=== PATIENT | male | born 1970 | race Caucasian/White ===

== ENCOUNTER 2020-01-04 13:12 | Observation (INO) | payer BC ==
[2020-01-04] MEDS ORDERED: Aspirin 81 MG Tab.Chew PO ONE (13:23)
[2020-01-04] MEDS ORDERED: Nitroglycerin 0.4 MG Tab.SL SL PRN ×2 (13:24→22:44)
--- NOTE | 2020-01-04 13:28 | EDM.PDOC ---
ED HPI GENERAL MEDICAL PROBLEM - General Chief Complaint: Chest Pain Stated Complaint: CHEST PAIN Time Seen by Provider: 01/04/20 13:28 Source of Information: Reports: Patient History Limitations: Reports: No Limitations - History of Present Illness INITIAL COMMENTS - FREE TEXT/NARRATIVE: Owen, 49-year-old male, while at work this morning at roughly 8 AM developed discomfort with left shoulder. This progressed radiating and becoming tightness in his chest with radiation in the left arm, slightly downward. He denies it being crushing and states "it is not like the elephant sitting on your chest that they talk about." States he has chronic shoulder issues with proven rotator cuff injury bilateral, assuming that is what the onset nature of his pain was. As it is persisted and had some mild irritation with shoulder and left arm involvement feels warranted for evaluation. Denies any shortness of breath, no nausea-vomiting, no lightheadedness or dizziness. States he typically gets a physical every year, if remembering correctly would have been February 2019 with everything being within normal limits. No medications advised no treatment is advised. States rotator cuff injuries are offered for repair or to continue current activity until they worsen and force some form of intervention. 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 [No Known Home Meds] 01/04/20 [History] Past Medical History HEENT History: Reports: Impaired Vision Cardiovascular History: Reports: None Respiratory History: Reports: None Gastrointestinal History: Reports: None Genitourinary History: Reports: Other (See Below) (Nocturia) Musculoskeletal History: Reports: Other (See Below) (Bilateral Rotator cuff issues) Neurological History: Reports: None Psychiatric History: Reports: None Endocrine/Metabolic History: Reports: None Hematologic History: Reports: None Immunologic History: Reports: None Oncologic (Cancer) History: Reports: None Dermatologic History: Reports: None - Past Surgical History HEENT Surgical History: Reports: Other (See Below) (tympanoplasty (Right)) Musculoskeletal Surgical History: Reports: Arthroscopic Knee (Left) Oncologic Surgical History: Reports: None - Past Imaging History Past Imaging History: Reports: MRI, Xray Social & Family History - Tobacco Use Tobacco Use Status *Q: Former Tobacco User (6 year cessation) Tobacco Use Within Last Twelve Months: No - Caffeine Use Caffeine Use: Reports: Coffee, Soda - Alcohol Use Alcohol Use History: Yes Total Drinks Per Week Comment: two or three possibly per week, at most. Alcohol Use in Last Twelve Months: Yes Alcohol Use Frequency: Socially - Recreational Drug Use Recreational Drug Use: No Drug Use in Last 12 Months: No - Living Situation & Occupation Living situation: Reports: , with Spouse Occupation: Employed ED ROS GENERAL - Review of Systems Review Of Systems: Comprehensive ROS is negative, except as noted in HPI. Constitutional: Reports: No Symptoms HEENT: Reports: Glasses Respiratory: Reports: No Symptoms Cardiovascular: Reports: Chest Pain Endocrine: Reports: No Symptoms GI/Abdominal: Reports: No Symptoms Musculoskeletal: Reports: Shoulder Pain Skin: Reports: No Symptoms Neurological: Reports: No Symptoms Psychiatric: Reports: No Symptoms Hematologic/Lymphatic: Reports: No Symptoms Immunologic: Reports: No Symptoms ED EXAM, GENERAL - Physical Exam Exam: See Below Free Text/Narrative:: At time of examination Mr. Soriano states his pain resolved completely shortly after he arrived at the emergency department and was in a semifowler position. He has not had recurrence of the pain, remains mildly hypertensive. General Appearance: Alert, WD/WN, No Apparent Distress. No: Anxious Ears: Normal External Exam, Normal Canal, Hearing Grossly Normal Nose: Normal Inspection, Normal Mucosa, No Blood Throat/Mouth: Normal Inspection, Normal Lips, Normal Teeth, Normal Oropharynx, Normal Voice, No Airway Compromise Head: Atraumatic Neck: Normal Inspection, Supple, Non-Tender. No: Carotid Bruit Respiratory/Chest: No Respiratory Distress, Lungs Clear, Normal Breath Sounds, No Accessory Muscle Use, Chest Non-Tender. No: Rhonchi, Wheezing Cardiovascular: Normal Peripheral Pulses, Regular Rate, Rhythm, No Edema, No Gallop, No JVD, No Murmur, No Rub GI/Abdominal: Normal Bowel Sounds, Soft, Non-Tender, No Organomegaly, No Distention, No Mass, Pelvis Stable (Male) Exam: Deferred Rectal (Males) Exam: Deferred Back Exam: Normal Inspection, Full Range of Motion. No: Paraspinal Tenderness, Vertebral Tenderness Extremities: Normal Inspection, Normal Range of Motion, Non-Tender, No Pedal Edema, Normal Capillary Refill, Other (No pain induced to motion or palpation.) Neurological: Alert Psychiatric: Normal Affect, Normal Mood Skin Exam: Warm, Dry, Intact, Normal Color, No Rash Lymphatic: No Adenopathy #1 Interpretation EKG Date: 01/04/20 Time: 13:28 Rhythm: NSR [place]: Normal P-Wave: Present QRS: Normal ST-T: Normal QT: Normal Comparison: NA - No Prior EKG Course - Vital Signs Last Recorded V/S: Last Vital Signs Temp 36.6 C 01/04/20 13:20 Pulse 60 01/04/20 15:25 Resp 16 01/04/20 15:25 BP 156/91 H 01/04/20 15:25 Pulse Ox 97 01/04/20 15:25 - Orders/Labs/Meds Orders: Active Orders 24 hr Category Date Time Status Patient Status [ADT] Routine ADT 01/04/20 15:29 Ordered Cardiac Monitoring [RC] . DIRECTED Care 01/04/20 15:29 Ordered Peripheral IV Care [RC] . DIRECTED Care 01/04/20 15:32 Ordered Sodium Chloride 0.9% [Saline Flush] Med 01/04/20 15:32 Ordered 10 ml FLUSH Q8HR PRN Peripheral IV Insertion Adult [OM.PC] Routine Oth 01/04/20 15:32 Ordered Code Status [Resuscitation Status] Stat Resus Stat 01/04/20 15:34 Ordered EKG 12 Lead [EK] Stat Ther 01/04/20 13:22 Stop Req Medication Orders Sodium Chloride (Saline Flush) 10 ml FLUSH Q8HR PRN PRN Reason: keep vein open Labs: Laboratory Tests 01/04/20 01/04/20 01/04/20 Range/Units 13:33 13:33 15:05 WBC 5.64 (5.00-10.00) 10^3/uL RBC 4.84 (4.50-6.00) 10^6/uL Hgb 13.4 (13.0-17.0) g/dL Hct 40.7 (40.0-52.0) % MCV 84.1 (82.0-92.0) fL MCH 27.7 (27.0-31.0) pg MCHC 32.9 (32.0-36.0) g/dL RDW 12.8 (11.5-14.5) % Plt Count 280 (150-400) 10^3/uL MPV 9.7 (7.4-10.4) fL Immature Gran % (Auto) 0.2 (0.0-5.0) % Neut % (Auto) 71.6 H (50.0-70.0) % Lymph % (Auto) 17.9 L (20.0-40.0) % [place] % (Auto) 8.7 H (2.0-8.0) % Eos % (Auto) 1.1 (1.0-3.0) % Baso % (Auto) 0.5 (0.0-1.0) % Neut # (Auto) 4.04 (2.50-7.00) 10^3/uL Lymph # (Auto) 1.01 (1.00-4.00) 10^3/uL [place] # (Auto) 0.49 (0.10-0.80) 10^3/uL Eos # (Auto) 0.06 L (0.10-0.30) 10^3/uL Baso # (Auto) 0.03 (0.00-0.10) 10^3/uL Immature Gran # (Auto) 0.01 (0.00-0.50) 10^3/uL Sodium 138 (136-145) mmol/L Potassium 3.7 (3.3-5.3) mmol/L Chloride 103 (98-115) mmol/L Carbon Dioxide 24.9 (21.0-32.0) mmol/L Anion Gap 13.8 (5-15) mmol/L BUN 13 (6-25) mg/dL Creatinine 0.91 (0.51-1.17) mg/dL Est Cr Clr Drug Dosing 98.19 mL/min Estimated GFR (MDRD) > 60 mL/min Glucose 89 (75 - 99) mg/dL Calcium 8.9 (8.7-10.3) mg/dL Total Bilirubin 0.5 (0.2-1.0) mg/dL AST 17 (15-37) U/L ALT 28 (12-78) U/L Alkaline Phosphatase 80 (46-116) IU/L Troponin I 0.08 H* (0.00-0.070) ng/mL Total Protein 7.6 (6.4-8.2) g/dL Albumin 3.91 (3.00-4.80) g/dL SARS CoV-2 RNA Rapid CLINT Negative (NEGATIVE) Meds: Medications Generic Name Dose Route Start Last Admin Trade Name Freq PRN Reason Stop Dose Admin Sodium Chloride 10 ml 01/04/20 15:32 Saline Flush FLUSH Q8HR PRN keep vein open Discontinued Medications Generic Name Dose Route Start Last Admin Trade Name Freq PRN Reason Stop Dose Admin Aspirin 324 mg 01/04/20 13:23 01/04/20 13:50 Aspirin PO 01/04/20 13:24 324 mg ONETIME ONE Administration Metoprolol Tartrate 5 mg 01/04/20 15:10 01/04/20 15:14 Lopressor IVPUSH 01/04/20 15:11 5 mg ONETIME ONE Administration Nitroglycerin 0.4 mg 01/04/20 13:24 Nitrostat SL Q5M PRN Chest Pain - Radiology Interpretation Free Text/Narrative:: 2 view chest with radiology report of negative examination. - Re-Assessments/Exams Free Text/Narrative Re-Assessment/Exam: 01/04/20 14:20 His atypical type chest pain has resolved completely shortly after arrival. Nitroglycerin brought blood pressure down some denying any headache. Is resting comfortably awaiting return of laboratory analysis within normal chest x-ray an d EKG G showing questionable ischemia in lead III and V1 with computer interpretation of the digitalis effect. Free Text/Narrative Re-Assessment/Exam: 01/04/20 15:01 Phone call placed Kristi Ansari [facility] provider recommending consult with cardiology/[place]. 1 call placed at [phone] and was connected at [address] Hernandez. Recommendation for continued monitoring, serial troponins, repeat EKG if troponin markers change and in a.m. She feels EKG is within normal limits with a normal variant. Monitor and treatment of hypertension as applicable and consult if development of other symptoms or markers becomes positive. Departure - Departure Time of Disposition: 15:37 Disposition: Refer to Observation Condition: Good Clinical Impression: Atypical chest pain, Elevated troponin I level - Discharge Information *PRESCRIPTION DRUG MONITORING PROGRAM REVIEWED*: Not Applicable *COPY OF PRESCRIPTION DRUG MONITORING REPORT IN PATIENT SHANA: Not Applicable Referrals: Jose Staton MD [Primary Care Provider] - Karla Kessler MD [Physician] - Forms: ED Department Discharge Additional Instructions: Admission to observation status, rule out [place], [facility] provider Kristi Ansari. Sepsis Event Note (ED) - Focused Exam Vital Signs: Vital Signs Temp Pulse Pulse Resp BP BP Pulse Ox 01/04/20 15:25 60 16 156/91 H 97 01/04/20 15:14 75 182/104 H 01/04/20 14:56 89 20 176/94 H 97 01/04/20 14:15 83 17 145/92 H 99 01/04/20 14:00 65 16 147/89 H 96 01/04/20 13:30 74 23 H 162/99 H 97 01/04/20 13:20 36.6 C 71 15 166/93 H 98 ED Communication - ED Communication Date/Time Date: 01/04/20 Time Called: 14:32 - Discussed Case With (1) Discussed Case With (1): Admitting Provider Person/s Notified (1): Kristi Ansari Time Called: 15:04 - Conversation Summary Admitting Provider Agreed to Patient's Admission: Yes Summary Comment: called and discussed cardiology consult. - Problem List & Annotations (1) Atypical chest pain SNOMED Code(s): 104463592 Code(s): R07.89 - OTHER CHEST PAIN Status: Acute Priority: High Current Visit: Yes Onset Date: ~01/04/20 Annotation/Comment:: Observation for serial troponin and EKG. (2) Rotator cuff dysfunction SNOMED Code(s): 670408618 Code(s): M67.919 - UNSP DISORDER OF SYNOVIUM AND TENDON, UNSPECIFIED SHOULDER Status: Chronic Priority: Medium Current Visit: Yes Qualifiers: Laterality: bilateral Qualified Code(s): M67.911 - Unspecified disorder of synovium and tendon, right shoulder; M67.912 - Unspecified disorder of synovium and tendon, left shoulder (3) Elevated troponin I level SNOMED Code(s): 806600030 Code(s): R77.8 - OTHER SPECIFIED ABNORMALITIES OF PLASMA PROTEINS Status: Acute Priority: High Current Visit: Yes Annotation/Comment:: Serial troponins to follow. - Problem List Review Problem List Initiated/Reviewed/Updated: Yes - My Orders Last 24 Hours: My Active Orders 01/04/20 13:22 EKG 12 Lead [EK] Stat 01/04/20 15:29 Patient Status [ADT] Routine Cardiac Monitoring [RC] . DIRECTED 01/04/20 15:32 Peripheral IV Care [RC] . DIRECTED Sodium Chloride 0.9% [Saline Flush] 10 ml FLUSH Q8HR PRN Peripheral IV Insertion Adult [OM.PC] Routine 01/04/20 15:34 Code Status [Resuscitation Status] Stat - Assessment/Plan Last 24 Hours: My Active Orders 01/04/20 13:22 EKG 12 Lead [EK] Stat 01/04/20 15:29 Patient Status [ADT] Routine Cardiac Monitoring [RC] . DIRECTED 01/04/20 15:32 Peripheral IV Care [RC] . DIRECTED Sodium Chloride 0.9% [Saline Flush] 10 ml FLUSH Q8HR PRN Peripheral IV Insertion Adult [OM.PC] Routine 01/04/20 15:34 Code Status [Resuscitation Status] Stat Plan: Admission to observation status, rule out [place], [facility] provider Kristi Ansari.
--- NOTE | 2020-01-04 14:00 | CR ---
[id number] RAD/RAD Chest PA And Lateral EXAM: RAD Chest PA And Lateral INDICATION: CHEST PAIN. COMPARISON: None. DISCUSSION: Cardiomediastinal silhouette is normal in size and contour. Lungs are clear. No pleural effusion or pneumothorax. IMPRESSION: Negative examination of the chest. Mariusz Tyler MD 01/04/20 [id number] Thank you for allowing us to participate in the care of your patient.
[2020-01-04 14:10] LABS: ANION GAP 13.8 mmol/L (5-15); CHLORIDE,CL 103 mmol/L (98-115); SODIUM,NA 138 mmol/L (136-145)
[2020-01-04] MEDS ORDERED: Metoprolol Tartrate 5 MG/5 ML SDV IVPUSH ONE (15:10)
[2020-01-04] MEDS ORDERED: Sodium Chloride 0.9% 10 ML Syringe FLUSH PRN (15:32)
--- NOTE | 2020-01-04 16:24 | PCM.HP.2 ---
H&P History of Present Illness - General Date of Service: 01/04/20 Admit Problem/Dx: Admission Diagnosis/Problem Admission Diagnosis/Problem Cardiac chest pain Source of Information: Patient History Limitations: Reports: No Limitations - History of Present Illness Initial Comments - Free Text/Narative: 49 year old male admitted observation from the [facility] ED due to chest pain, elevated troponin at 0.08. Patient presented to the ED via private car with complaints of left sided chest pain that started approximately 9am on 01/04/2020. He had hit the thenar aspect of his left hand on a truck and experienced pain that was sharp and went up the arm. The pain persisted and th en seemed to come from the left chest as a "discomfort" and go down the left arm. By the time he presented to the ED he states the pain was also in his left upper back. No associated shortness of breath, diaphoresis, nausea, vomiting or headache/light headedness. He has no previous cardiac history, family history includes mother with atrial fibrillation, father cancer. No other cardiac family history. He previously smoked for 25 years, but he quit approximately six years ago. Does have hx of rotator cuff injuries bilaterally. - Related Data Allergies/Adverse Reactions: Allergies Allergy/AdvReac Type Severity Reaction Status Date / Time No Known Drug Allergies Allergy Cannot Verified 01/04/20 13:22 Remember Home Medications: Home Meds . [No Known Home Meds] 01/04/20 [History] Past Medical History HEENT History: Reports: Impaired Vision Cardiovascular History: Reports: None Respiratory History: Reports: None Gastrointestinal History: Reports: None Genitourinary History: Reports: Other (See Below) (Nocturia) Musculoskeletal History: Reports: Other (See Below) (Bilateral Rotator cuff issues) Neurological History: Reports: None Psychiatric History: Reports: None Endocrine/Metabolic History: Reports: None Hematologic History: Reports: None Immunologic History: Reports: None Oncologic (Cancer) History: Reports: None Dermatologic History: Reports: None - Past Surgical History HEENT Surgical History: Reports: Other (See Below) (tympanoplasty (Right)) Musculoskeletal Surgical History: Reports: Arthroscopic Knee (Left) Oncologic Surgical History: Reports: None - Past Imaging History Past Imaging History: Reports: MRI, Xray Social & Family History - Family History Cardiac: Reports: Afib Oncologic: Reports: Prostate - Tobacco Use Tobacco Use Status *Q: Former Tobacco User (6 year cessation) Packs/Tins Daily: 1 Used Tobacco, but Quit: Yes Month/Year Tobacco Last Used: 03/2013 - Caffeine Use Caffeine Use: Reports: Coffee, Soda - Recreational Drug Use Recreational Drug Use: No Drug Use in Last 12 Months: No - Living Situation & Occupation Living situation: Reports: , with Spouse Occupation: Employed H&P Review of Systems - Review of Systems: Review Of Systems: See Below General: Denies: Fever, Chills, Malaise, Weakness, Fatigue, Decreased Appetite, Weight Loss, Weight Gain HEENT: Denies: Ear Pain, Eye Pain, Headaches, Sinus Congestion, Sore Throat, Vertigo, Visual Changes Pulmonary: Denies: Shortness of Breath, Wheezing, Cough Cardiovascular: Reports: Chest Pain (patient reports "virtually gone"). Denies: Palpitations, Edema, Lightheadedness Gastrointestinal: Denies: Abdominal Pain, Black Stool, Bloody Stool, Constipation, Diarrhea, Decreased Appetite, Nausea, Vomiting Genitourinary: Denies: Dysuria, Burning, Urgency, Hematuria Musculoskeletal: Reports: Shoulder Pain (left). Denies: Back Pain, Leg Pain Skin: Denies: Cyanosis, Jaundice, Pallor, Rash, Lesions Psychiatric: Denies: Confusion, Depression, Anxiety Neurological: Denies: Confusion, Dizziness, Headache, Numbness, Paresthesia, Tingling, Trouble Speaking, Difficulty Walking, Weakness Exam - Exam Exam: See Below - Vital Signs Vital Signs: Last Vital Signs Temp 36.6 C 01/04/20 13:20 Pulse 60 01/04/20 15:25 Resp 16 01/04/20 15:25 BP 156/91 H 01/04/20 15:25 Pulse Ox 97 01/04/20 15:25 Weight: 108.862 kg - Exam Physical Exam Comments:: GENERAL: Well-appearing adult in no acute distress. HEENT: Normocephalic, atraumatic. Conjunctiva clear. Nares patent without discharge. Mucous membranes moist, posterior pharynx unremarkable. NECK: Supple, no masses. CV: Regular rate and rhythm, 1/6 systolic murmur, no rubs or gallops. 2+ radial pulses. PULMONARY: Normal effort, clear to auscultation bilaterally, no wheezes, rales, or rhonchi. ABDOMEN: Positive bowel sounds, soft, nontender, nondistended. EXTREMITIES: No edema, cyanosis, or clubbing. MUSCULOSKELETAL: Moves all extremities well. NEUROLOGICAL: No obvious deficits. DERMATOLOGIC: No rashes or suspicious lesions in exposed areas. PSYCHIATRIC: Alert, interactive, appropriate affect. - Patient Data Lab Results Last 24 hrs: Laboratory Results - last 24 hr 01/04/20 01/04/20 01/04/20 Range/Units 13:33 13:33 15:05 WBC 5.64 (5.00-10.00) 10^3/uL RBC 4.84 (4.50-6.00) 10^6/uL Hgb 13.4 (13.0-17.0) g/dL Hct 40.7 (40.0-52.0) % MCV 84.1 (82.0-92.0) fL MCH 27.7 (27.0-31.0) pg MCHC 32.9 (32.0-36.0) g/dL RDW 12.8 (11.5-14.5) % Plt Count 280 (150-400) 10^3/uL MPV 9.7 (7.4-10.4) fL Immature Gran % (Auto) 0.2 (0.0-5.0) % Neut % (Auto) 71.6 H (50.0-70.0) % Lymph % (Auto) 17.9 L (20.0-40.0) % [place] % (Auto) 8.7 H (2.0-8.0) % Eos % (Auto) 1.1 (1.0-3.0) % Baso % (Auto) 0.5 (0.0-1.0) % Neut # (Auto) 4.04 (2.50-7.00) 10^3/uL Lymph # (Auto) 1.01 (1.00-4.00) 10^3/uL [place] # (Auto) 0.49 (0.10-0.80) 10^3/uL Eos # (Auto) 0.06 L (0.10-0.30) 10^3/uL Baso # (Auto) 0.03 (0.00-0.10) 10^3/uL Immature Gran # (Auto) 0.01 (0.00-0.50) 10^3/uL Sodium 138 (136-145) mmol/L Potassium 3.7 (3.3-5.3) mmol/L Chloride 103 (98-115) mmol/L Carbon Dioxide 24.9 (21.0-32.0) mmol/L Anion Gap 13.8 (5-15) mmol/L BUN 13 (6-25) mg/dL Creatinine 0.91 (0.51-1.17) mg/dL Est Cr Clr Drug Dosing 98.19 mL/min Estimated GFR (MDRD) > 60 mL/min Glucose 89 (75 - 99) mg/dL Calcium 8.9 (8.7-10.3) mg/dL Total Bilirubin 0.5 (0.2-1.0) mg/dL AST 17 (15-37) U/L ALT 28 (12-78) U/L Alkaline Phosphatase 80 (46-116) IU/L Troponin I 0.08 H* (0.00-0.070) ng/mL Total Protein 7.6 (6.4-8.2) g/dL Albumin 3.91 (3.00-4.80) g/dL SARS CoV-2 RNA Rapid CLINT Negative (NEGATIVE) Result Diagrams: 01/04/20 13:33 01/04/20 13:33 Sepsis Event Note - Evaluation Sepsis Screening Result: No Definite Risk - Focused Exam Vital Signs: Vital Signs Temp Pulse Pulse Resp BP BP Pulse Ox 01/04/20 15:25 60 16 156/91 H 97 01/04/20 15:14 75 182/104 H 01/04/20 14:56 89 20 176/94 H 97 01/04/20 14:15 83 17 145/92 H 99 01/04/20 14:00 65 16 147/89 H 96 01/04/20 13:30 74 23 H 162/99 H 97 01/04/20 13:20 36.6 C 71 15 166/93 H 98 Problem List Initiated/Reviewed/Updated: Yes Orders Last 24hrs: Active Orders 24 hr Category Date Time Status Patient Status [ADT] Routine ADT 01/04/20 15:29 Active Cardiac Monitoring [RC] . DIRECTED Care 01/04/20 15:29 Active Peripheral IV Care [RC] . DIRECTED Care 01/04/20 15:32 Active Sodium Chloride 0.9% [Saline Flush] Med 01/04/20 15:32 Active 10 ml FLUSH Q8HR PRN Peripheral IV Insertion Adult [OM.PC] Routine Oth 01/04/20 15:32 Ordered Code Status [Resuscitation Status] Stat Resus Stat 01/04/20 15:34 Ordered EKG 12 Lead [EK] Stat Ther 01/04/20 13:22 Stop Req Medication Orders Sodium Chloride (Saline Flush) 10 ml FLUSH Q8HR PRN PRN Reason: keep vein open Assessment/Plan Comment:: HPI summary: 49 year old male admitted observation from the [facility] ED due to chest pain, elevated troponin at 0.08. Patient presented to the ED via private car with complaints of left sided chest pain that started approximately 9am on 01/04/2020. He had hit the thenar aspect of his left hand on a truck and experienced pain that was sharp and went up the arm. The pain persisted and then seemed to come from the left chest as a "discomfort" and go down the left arm. By the time he presented to the ED he states the pain was also in his left upper back. No associated shortness of breath, diaphoresis, nausea, vomiting or headache/light headedness. He has no previous cardiac history, family history includes mother with atrial fibrillation, father cancer. No other cardiac family history. He previously smoked for 25 years, but he quit approximately six years ago. Does have hx of rotator cuff injuries bilaterally. ED course: -VS: T36.6C, P 60, R 16, BP 156/91, O2 sat 97% -EKG: NSR rate 69, T wave inversion in leads III and V1, no ST depression or elevation seen -CXR: Negative -SL -BP elevated at 182/104 and given metoprolol tartrate 5mg IV x 1, repeat was 156/91 -Lab: CBC Neut % 71.6, Lymph % 17.9, mono % 8.7, eos # 0.06 otherwise unremarkable. CMP unremarkable. Troponin 0.08. COVID negative. -ASA 324mg oral x 1 given -Call placed to [facility] Dr. Hernandez for EKG review. Will admit to [place] service for troponin trending and cardiac rule out. Hospital course: Evaluation by expert medical writer on admission reveals no current concerns. Patient is essentially pain free, denies SOB, nausea, light headed or headache. DUONG risk score 1. Hospitalization problems and plan: # Chest pain, R/O MO - Troponin at 2000 tonight and in AM - Telemetry monitoring - EKG with chest pain or if troponin elevates further - Plavix 600mg oral load, followed by 75mg daily - Atorvastatin 80mg oral one time # Hypertension - Metoprolol tartrate 25mg oral twice daily Chronic, stable conditions: # Complete tear of right rotator cuff # Complete tear of left rotator cuff Hospitalization details: # FEN: SL, electrolytes stable, heart healthy diet # PPX: Aspirin 324mg orally given and clopidogrel # Code status: Full code, discussed with patient at bedside # Emergency contact: , updated by nursing # Disposition: anticipate discharge to home in the AM if no further chest pain or increase in troponin; consider stress test/ECHO as outpatient - Mortality Measure Prognosis:: Good
[2020-01-04] MEDS ORDERED: Clopidogrel 75 MG Tab PO ONE (17:16)
[2020-01-04] MEDS ORDERED: atorvaSTATin 40 MG Tab PO ONE (17:26)
[2020-01-04] MEDS: Metoprolol Tartrate 25 MG Tab PO SCH (20:53)
[2020-01-04] MEDS ORDERED: Lidocaine 2% 100 MG/5 ML Syringe IVPUSH PRN (22:44)
[2020-01-04] MEDS ORDERED: EPINEPHrine 1:10,000 1 MG/10 ML Syringe IVPUSH PRN (22:44)
[2020-01-04] MEDS ORDERED: Atropine 0.1 MG/ML 10 ML Syringe IVPUSH PRN (22:44)
[2020-01-05 08:00] LABS: CHLORIDE,CL 103 mmol/L (98-115); SODIUM,NA 140 mmol/L (136-145)
[2020-01-05] MEDS: Metoprolol Tartrate 25 MG Tab PO SCH (08:57)
--- NOTE | 2020-01-05 11:10 | PCM.DCSUM1 ---
Discharge Summary - Hospital Course Free Text/Narrative:: Date of admission: 01/04/2020 Date of discharge: 01/05/2020 Admission diagnoses: #Chest pain, R/O LA #HTN Discharge diagnoses: #Hypertensive Emergency, stable #Chest pain, LA ruled out Consultations: None Procedures: None HPI: 49 year old male admitted observation from the [facility] ED due to chest pain, elev ated troponin at 0.08. Patient presented to the ED via private car with complaints of left sided chest pain that started approximately 9am on 01/04/2020. He had hit the thenar aspect of his left hand on a truck and experienced pain that was sharp and went up the arm. The pain persisted and then seemed to come from the left chest as a "discomfort" and go down the left arm. By the time he presented to the ED he states the pain was also in his left upper back. No associated shortness of breath, diaphoresis, nausea, vomiting or headache/light headedness. He has no previous cardiac history, family history includes mother with atrial fibrillation, father cancer. No other cardiac family history. He previously smoked for 25 years, but he quit approximately six years ago. Does have hx of rotator cuff injuries bilaterally. ED course: -VS: T36.6C, P 60, R 16, BP 156/91, O2 sat 97% -EKG: NSR rate 69, T wave inversion in leads III and V1, no ST depression or elevation seen -CXR: Negative -SL -BP elevated at 182/104 and given metoprolol tartrate 5mg IV x 1, repeat was 156/91 -Lab: CBC Neut % 71.6, Lymph % 17.9, mono % 8.7, eos # 0.06 otherwise unremarkable. CMP unremarkable. Troponin 0.08. COVID negative. -ASA 324mg oral x 1 given -Call placed to [facility] Dr. Hernandez for EKG review. Will admit to [place] service for troponin trending and cardiac rule out. Hospital course: 01/04/2020: Evaluation by lead technical writer on admission reveals no current concerns. Patient is essentially pain free, denies SOB, nausea, light headed or headache. DUONG risk score 1. 01/05/2020: Patient reports no overnight concerns or recurrence of pain. Nursing reports overnight pulse did drop to 40s at one point, patient was asymptomatic. Blood pressure has remained stable overnight with initiation of metoprolol tartrate 25mg twice daily. Eating, drinking and voiding without concern. Reports desire to go home. Discharge and follow-up recommendations: - Discharge to home, self care - New medications at discharge: - Metoprolol tartrate 25mg orally twice daily - Follow-up with PCP Tuesday01/08/2020. Recommendations on follow up for consideration of stress test and ECHO. Patient was started on metoprolol tartrate due to the risk of coronary event, but PCP could consider change to MARY inhibitor or other antihypertensive of choice as acute LA ruled out. Diagnosis: Stroke: No - Discharge Data Discharge Date: 01/05/20 Discharge Disposition: Home, Self-Care 01 Condition: Good - Referral to Home Health Primary Care Physician: Jose Staton MD - Patient Instructions Diet: Heart Healthy Diet Diet, Other: low salt Activity: As Tolerated Driving: May Drive Today Showering/Bathing: May Shower Other/Special Instructions: Notify if chest pain returns, shortness of breath, nausea/vomiting, light headed or dizzy. - Discharge Plan *PRESCRIPTION DRUG MONITORING PROGRAM REVIEWED*: Not Applicable *COPY OF PRESCRIPTION DRUG MONITORING REPORT IN PATIENT SHANA: Not Applicable Prescriptions/Med Rec: Metoprolol Tartrate 25 mg PO BID #60 tablet Home Medications: Home Meds Metoprolol Tartrate 25 mg PO BID #60 tablet 01/05/20 [Rx] Patient Handouts: Nonspecific Chest Pain, Adult Referrals: Karla Kessler MD [Physician] - (Follow up with Dorene Anderson PA-C this week ) - Discharge Summary/Plan Comment DC Time >30 min.: Yes - General Info Date of Service: 01/05/20 Subjective Update: 49 year old male sitting in chair, no overnight concerns. He reports no recurrence of pain. Reports desire for discharge. Functional Status: Reports: Pain Controlled, Tolerating Diet, Ambulating, Urinating. Denies: New Symptoms - Review of Systems General: Reports: Appetite. Denies: Fever, Weakness, Fatigue HEENT: Denies: Eye Pain, Headaches, Sore Throat Pulmonary: Denies: Shortness of Breath, Pleuritic Chest Pain, Cough Cardiovascular: Denies: Chest Pain, Palpitations, Edema Gastrointestinal: Denies: Abdominal Pain, Constipation, Diarrhea, Melena, Nausea, Vomiting Genitourinary: Denies: Dysuria, Urgency, Hematuria Musculoskeletal: Reports: Shoulder Pain (left shoulder, at patient's baseline). Denies: Neck Pain, Arm Pain, Leg Pain Skin: Denies: Cyanosis, Pallor, Rash Neurological: Denies: Confusion, Headache, Numbness, Paresthesia, Weakness Psychiatric: Denies: Confusion, Anxiety, Agitation - Patient Data Vitals - Most Recent: Last Vital Signs Temp 37.1 C 01/05/20 06:20 Pulse 75 01/05/20 08:57 Resp 16 01/05/20 06:20 BP 147/90 H 01/05/20 08:57 Pulse Ox 99 01/05/20 06:20 Weight - Most Recent: 108.862 kg I&O - Last 24 hours: Intake & Output 01/04/20 01/05/20 01/05/20 22:59 06:59 14:59 Intake Total 650 200 Output Total 800 375 Balance -150 -175 Lab Results - Last 24 hrs: Laboratory Results - last 24 hr 01/04/20 01/04/20 01/04/20 Range/Units 13:33 13:33 15:05 WBC 5.64 (5.00-10.00) 10^3/uL RBC 4.84 (4.50-6.00) 10^6/uL Hgb 13.4 (13.0-17.0) g/dL Hct 40.7 (40.0-52.0) % MCV 84.1 (82.0-92.0) fL MCH 27.7 (27.0-31.0) pg MCHC 32.9 (32.0-36.0) g/dL RDW 12.8 (11.5-14.5) % Plt Count 280 (150-400) 10^3/uL MPV 9.7 (7.4-10.4) fL Immature Gran % (Auto) 0.2 (0.0-5.0) % Neut % (Auto) 71.6 H (50.0-70.0) % Lymph % (Auto) 17.9 L (20.0-40.0) % Crawford % (Auto) 8.7 H (2.0-8.0) % Eos % (Auto) 1.1 (1.0-3.0) % Baso % (Auto) 0.5 (0.0-1.0) % Neut # (Auto) 4.04 (2.50-7.00) 10^3/uL Lymph # (Auto) 1.01 (1.00-4.00) 10^3/uL Crawford # (Auto) 0.49 (0.10-0.80) 10^3/uL Eos # (Auto) 0.06 L (0.10-0.30) 10^3/uL Baso # (Auto) 0.03 (0.00-0.10) 10^3/uL Immature Gran # (Auto) 0.01 (0.00-0.50) 10^3/uL Sodium 138 (136-145) mmol/L Potassium 3.7 (3.3-5.3) mmol/L Chloride 103 (98-115) mmol/L Carbon Dioxide 24.9 (21.0-32.0) mmol/L Anion Gap 13.8 (5-15) mmol/L BUN 13 (6-25) mg/dL Creatinine 0.91 (0.51-1.17) mg/dL Est Cr Clr Drug Dosing 98.19 mL/min Estimated GFR (MDRD) > 60 mL/min Glucose 89 (75 - 99) mg/dL Calcium 8.9 (8.7-10.3) mg/dL Total Bilirubin 0.5 (0.2-1.0) mg/dL AST 17 (15-37) U/L ALT 28 (12-78) U/L Alkaline Phosphatase 80 (46-116) IU/L Troponin I 0.08 H* (0.00-0.070) ng/mL Total Protein 7.6 (6.4-8.2) g/dL Albumin 3.91 (3.00-4.80) g/dL Triglycerides (30-150) mg/dL Cholesterol (100-199) mg/dL LDL Cholesterol, Calc (0-100) mg/dL HDL Cholesterol (40-60) mg/dL SARS CoV-2 RNA Rapid CLINT Negative (NEGATIVE) 01/04/20 01/05/20 01/05/20 Range/Units 20:03 07:15 07:15 WBC 4.72 L (5.00-10.00) 10^3/uL RBC 4.97 (4.50-6.00) 10^6/uL Hgb 13.7 (13.0-17.0) g/dL Hct 41.9 (40.0-52.0) % MCV 84.3 (82.0-92.0) fL MCH 27.6 (27.0-31.0) pg MCHC 32.7 (32.0-36.0) g/dL RDW 12.7 (11.5-14.5) % Plt Count 279 (150-400) 10^3/uL MPV 9.6 (7.4-10.4) fL Immature Gran % (Auto) 0.0 (0.0-5.0) % Neut % (Auto) 66.4 (50.0-70.0) % Lymph % (Auto) 21.6 (20.0-40.0) % Crawford % (Auto) 9.5 H (2.0-8.0) % Eos % (Auto) 1.9 (1.0-3.0) % Baso % (Auto) 0.6 (0.0-1.0) % Neut # (Auto) 3.13 (2.50-7.00) 10^3/uL Lymph # (Auto) 1.02 (1.00-4.00) 10^3/uL Crawford # (Auto) 0.45 (0.10-0.80) 10^3/uL Eos # (Auto) 0.09 L (0.10-0.30) 10^3/uL Baso # (Auto) 0.03 (0.00-0.10) 10^3/uL Immature Gran # (Auto) 0.00 (0.00-0.50) 10^3/uL Sodium 140 (136-145) mmol/L Potassium 4.1 (3.3-5.3) mmol/L Chloride 103 (98-115) mmol/L Carbon Dioxide 27.1 (21.0-32.0) mmol/L Anion Gap 14.0 (5-15) mmol/L BUN 13 (6-25) mg/dL Creatinine 1.00 (0.51-1.17) mg/dL Est Cr Clr Drug Dosing 89.36 mL/min Estimated GFR (MDRD) > 60 mL/min Glucose 95 (75 - 99) mg/dL Calcium 8.0 L (8.7-10.3) mg/dL Total Bilirubin (0.2-1.0) mg/dL AST (15-37) U/L ALT (12-78) U/L Alkaline Phosphatase (46-116) IU/L Troponin I 0.08 H* 0.08 H* (0.00-0.070) ng/mL Total Protein (6.4-8.2) g/dL Albumin (3.00-4.80) g/dL Triglycerides 84 (30-150) mg/dL Cholesterol 144 (100-199) mg/dL LDL Cholesterol, Calc 92 (0-100) mg/dL HDL Cholesterol 35 L (40-60) mg/dL SARS CoV-2 RNA Rapid CLINT (NEGATIVE) Med Orders - Current: Current Medications Atropine Sulfate (Atropine 0.1 Mg/Ml) 0 mg IVPUSH ASDIRECTED PRN PRN Reason: Heart. Clopidogrel Bisulfate (Plavix) 75 mg PO DAILY [facility] Epinephrine HCl (Epinephrine 1:10,000) 1 mg IVPUSH ASDIRECTED PRN PRN Reason: Heart. Lidocaine HCl (Xylocaine 2%) 0 mg IVPUSH ASDIRECTED PRN PRN Reason: Heart. Metoprolol Tartrate (Lopressor) 25 mg PO BID [facility] Last Admin: 01/05/20 08:57 Dose: 25 mg Documented by: Nitroglycerin (Nitrostat) 0.4 mg SL ASDIRECTED PRN PRN Reason: Heart. Sodium Chloride (Saline Flush) 10 ml FLUSH Q8HR PRN PRN Reason: keep vein open Discontinued Medications Aspirin (Aspirin) 324 mg PO ONETIME ONE Stop: 01/04/20 13:24 Last Admin: 01/04/20 13:50 Dose: 324 mg Documented by: Atorvastatin Calcium (Lipitor) 80 mg PO ONETIME ONE Stop: 01/04/20 17:27 Last Admin: 01/04/20 17:40 Dose: 80 mg Documented by: Clopidogrel Bisulfate (Plavix) 600 mg PO ONETIME ONE Stop: 01/04/20 17:17 Last Admin: 01/04/20 17:39 Dose: 600 mg Documented by: Metoprolol Tartrate (Lopressor) 5 mg IVPUSH ONETIME ONE Stop: 01/04/20 15:11 Last Admin: 01/04/20 15:14 Dose: 5 mg Documented by: Nitroglycerin (Nitrostat) 0.4 mg SL Q5M PRN PRN Reason: Chest Pain - Exam Physical Findings Comments:: GENERAL: Well-appearing adult in no acute distress. HEENT: Normocephalic, atraumatic. Conjunctiva clear. Nares patent without discharge. Mucous membranes moist, posterior pharynx unremarkable. NECK: Supple, no masses. CV: Regular rate and rhythm, 1/6 systolic murmur, no rubs or gallops. 2+ radial pulses. PULMONARY: Normal effort, clear to auscultation bilaterally, no wheezes, rales, or rhonchi. ABDOMEN: Positive bowel sounds, soft, nontender, nondistended. EXTREMITIES: No edema, cyanosis, or clubbing. MUSCULOSKELETAL: Moves all extremities well. NEUROLOGICAL: No obvious deficits. DERMATOLOGIC: No rashes or suspicious lesions in exposed areas. PSYCHIATRIC: Alert, interactive, appropriate affect.
[2020-01-05] MEDS ORDERED: Clopidogrel 75 MG Tab PO SCH (17:00)
== END 2020-01-05 11:44 | disposition home or self-care (01) ==
LOC: KA.ED 13:12 → KA.MS 15:29
PROVIDERS: ADMIT Nurse Practitioner Family; ATTEND Family Medicine
DX: I16.1 Hypertensive emergency (principal); I10 Essential (primary) hypertension; R79.89 Other specified abnormal findings of blood chemistry; Z20.828 Contact with and (suspected) exposure to other viral communicable diseases; M75.122 Complete rotator cuff tear or rupture of left shoulder, not specified as traumatic; M75.121 Complete rotator cuff tear or rupture of right shoulder, not specified as traumatic; Z82.49 Family history of ischemic heart disease and other diseases of the circulatory system; Z87.891 Personal history of nicotine dependence
CPT/HCPCS: 36415; 71046; 80048; 80053; 80061; 84484; 85025; 93005; 96374; 99284; 99285-25; A9270-GY; G0378; J3490; U0002